=== PATIENT | male | born 1960 | race Caucasian/White ===

== ENCOUNTER 2016-07-01 02:12 | Emergency (ER) | payer MEDICAID ==
[~2016-07-01 02:12] MED LIST: ACETAMINOPHEN325 M2 PO; ASPIRIN325 M3 PO; ASPIRIN325 MG PO; ASPIRIN81 M1 PO; CATAPRES0.1 MG; CELEXA PO; CLEOCIN HCL300 MG PO; COZAAR100 MG; COZAAR25 MG; COZAAR50 MG PO; CYCLOBENZAPRINE10 M1 PO; CYMBALTA60 M1 PO; CYMBALTA60 MG; CYMBALTA60 MG PO; DARVOCET-N 1001 TAB; DARVOCET-N 1001 TAB PO; DILAUDID2 MG PO; FLEXERIL10 MG PO; FLEXERIL5 MG PO; FLUTICASONE PRO16 G1; HYDROCHLOROTHIA25 MG PO; HYDROCODON-ACE1 EA15 PO; HYDROCODON-ACE1 EA17 PO; HYDROCODON-ACE1 EAC5 PO; HYDROCODON-ACE1 EAC7 PO; K-DUR20 MEQ PO; KEFLEX500 MG PO; LASIX20 M1 PO; LASIX40 M1 PO; LASIX40 MG PO; LISINOPRIL20 M1 PO; LISINOPRIL20 MG PO; LOPRESSOR100 MG; LORTAB 7.5/5001 TAB PO; MIRALAX17 G1 PO; MOBIC15 M2 PO; MYCOSTATIN30 GM TP; NEURONTIN100 MG; NORCO 5-325 TA1 EACH PO; NORCO 5/325 TAB1 TAB PO; NORCO 5/3251 TAB PO; NORCO 7.5/325 T1 TAB PO; NORVASC10 MG; NORVASC10 MG PO; NORVASC5 M1 PO; NORVASC5 M2 PO; NORVASC5 MG PO; OXYCODONE/APAP PO; OXYCONTIN10 M1 PO; PERCOCET 5-3251 EACH PO; PERCOCET 5/3251 TAB PO; POLYETHYLENE G500 G1 MC; PREDNISONE5 MG PO; ROXICODONE5 M2 PO; SEPTRA DS TABLE1 TAB PO; SOMA350 MG; SOMA350 MG PO; SPIRONOLACTONE25 M2 PO; SULFAMYLON453.6 GM TP; TOPROL XL100 MG; TOPROL XL100 MG PO; TRAZODONE HCL50 M1 PO; TRIAMCINOLONE A15 G TP; TRIAMCINOLONE A15 G3 TP; ULTRAM50 M1 PO; ULTRAM50 MG PO; ZOLOFT100 M1 PO; ZYRTEC10 MG PO; ZYRTEC1010 PO; [UNRECOGNIZED DRUG - REMARK]
[2016-09-05] MEDS ORDERED: HYDROCODON-ACE1 EA16 PO (10:24)
[2016-10-19] MEDS ORDERED: CYCLOBENZAPRINE10 M1 PO (00:31)
[2016-10-21] MEDS ORDERED: BUTALB-ACETAMI1 EAC1 PO (21:52)
== END 2016-07-01 03:50 ==
LOC: EDMED 02:12
DX: M25.562 Pain in left knee (principal); G89.29 Other chronic pain; I10 Essential (primary) hypertension; Z79.899 Other long term (current) drug therapy
CPT/HCPCS: J2270

== ENCOUNTER 2016-07-04 06:39 | Emergency (ER) | payer MEDICAID ==
[2016-09-05] MEDS ORDERED: HYDROCODON-ACE1 EA16 PO (10:24)
[2016-10-19] MEDS ORDERED: CYCLOBENZAPRINE10 M1 PO (00:31)
[2016-10-21] MEDS ORDERED: BUTALB-ACETAMI1 EAC1 PO (21:52)
== END 2016-07-04 07:15 ==
LOC: EDMED 06:39
DX: M25.562 Pain in left knee (principal); I10 Essential (primary) hypertension; G89.29 Other chronic pain; Z96.653 Presence of artificial knee joint, bilateral

== ENCOUNTER 2016-08-06 03:44 | Inpatient (IN) | payer MEDICAID ==
[2016-08-06] MEDS ORDERED: LISINOPRIL-HCT1 EAC1 PO (03:57)
[2016-08-06] MEDS ORDERED: LISINOPRIL-HCT1 EAC2 PO (04:42)
[2016-08-06 05:20] LABS: BASO % 0.7 % (0-2); BASO ABSOLUTE COUNT 0.1 tho/cmm (0.0-0.2); EOS % 4.9 % (0-7); EOSINOPHIL ABSOLUTE COUNT 0.3 tho/cmm (0.0-0.7); HCT-HEMATOCRIT 43.2 % (36.0-53.5); HGB-HEMOGLOBIN 13.8 gm/dl (13.5-17.0); IMMATURE GRANULOCYTES ABSOLUTE 0.03 tho/cmm (0-0.03); IMMATURE GRANULOCYTES PERCENT 0.4 % (0-0.3); LYMPH % 34.9 % (20-45); LYMPH ABSOLUTE COUNT 2.4 tho/cmm (0.8-4.5); MCH (MEAN CORPUSCULAR HGB) 26.8 pg (28.0-32.0); MCHC MEAN CORPUSCULAR HGB CONC 31.9 % (32.0-36.0); MCV (MEAN CELL VOLUME) 83.9 fl (82.0-96.0); MEAN PLATELET VOLUME 10.1 cmc (9.4-12.4); MONO % 13.6 % (0-12); NEUTROPHIL ABSOLUTE COUNT 3.2 tho/cmm (1.6-8.0); NEUTROPHIL-AUTOMATED 3.2 tho/cmm (1.6-8.0); NEUTROPHILS % 45.5 % (40-80); PLATELET COUNT 258 tho/cmm (150-450); RED BLOOD COUNT 5.15 mil/cmm (4.40-5.70); RED CELL DISTRIBUTION WIDTH 14.7 % (12.4-16.4)
[2016-08-06 07:51] LABS: ANION GAP 12 mmol/L (0-20); BLOOD UREA NITROGEN 20 mg/dl (6-24); CALCIUM 8.6 mg/dl (8.5-10.5); CARBON DIOXIDE-VENOUS 29 mmol/L (22-32); CHLORIDE 102 mmol/l (96-110); CREATININE 1.35 mg/dl (0.60-1.30); GLUCOSE 134 mg/dL (70-110); SODIUM 139 mmol/L (135-145); eGFR VALUE FOR BLACK 67 mL/Min
[2016-08-06 07:52] LABS: POTASSIUM 4.1 mmol/L (3.7-5.1)
[2016-08-07 05:19] LABS: BASO % 0.1 % (0-2); HCT-HEMATOCRIT 44.3 % (36.0-53.5); HGB-HEMOGLOBIN 13.7 gm/dl (13.5-17.0); LYMPH % 10.4 % (20-45); LYMPH ABSOLUTE COUNT 1.3 tho/cmm (0.8-4.5); MCH (MEAN CORPUSCULAR HGB) 26.2 pg (28.0-32.0); MCHC MEAN CORPUSCULAR HGB CONC 30.9 % (32.0-36.0); MCV (MEAN CELL VOLUME) 84.9 fl (82.0-96.0); MEAN PLATELET VOLUME 10.4 cmc (9.4-12.4); MONO % 4.5 % (0-12); MONOCYTE ABSOLUTE COUNT 0.6 tho/cmm (0.0-1.2); NEUTROPHIL ABSOLUTE COUNT 10.6 tho/cmm (1.6-8.0); NEUTROPHIL-AUTOMATED 10.6 tho/cmm (1.6-8.0); PLATELET COUNT 279 tho/cmm (150-450); RED BLOOD COUNT 5.22 mil/cmm (4.40-5.70); RED CELL DISTRIBUTION WIDTH 14.6 % (12.4-16.4); WHITE BLOOD COUNT 12.5 tho/cmm (4.0-10.0)
[2016-08-08 05:12] LABS: BASO % 0.1 % (0-2); EOS % 0.2 % (0-7); HCT-HEMATOCRIT 44.4 % (36.0-53.5); HGB-HEMOGLOBIN 14.1 gm/dl (13.5-17.0); IMMATURE GRANULOCYTES ABSOLUTE 0.06 tho/cmm (0-0.03); IMMATURE GRANULOCYTES PERCENT 0.5 % (0-0.3); LYMPH % 20.1 % (20-45); LYMPH ABSOLUTE COUNT 2.7 tho/cmm (0.8-4.5); MCH (MEAN CORPUSCULAR HGB) 26.8 pg (28.0-32.0); MCHC MEAN CORPUSCULAR HGB CONC 31.8 % (32.0-36.0); MCV (MEAN CELL VOLUME) 84.3 fl (82.0-96.0); MEAN PLATELET VOLUME 10.4 cmc (9.4-12.4); MONO % 10.3 % (0-12); MONOCYTE ABSOLUTE COUNT 1.4 tho/cmm (0.0-1.2); NEUTROPHIL ABSOLUTE COUNT 9.2 tho/cmm (1.6-8.0); NEUTROPHIL-AUTOMATED 9.2 tho/cmm (1.6-8.0); NEUTROPHILS % 68.8 % (40-80); PLATELET COUNT 271 tho/cmm (150-450); RED BLOOD COUNT 5.27 mil/cmm (4.40-5.70); RED CELL DISTRIBUTION WIDTH 14.8 % (12.4-16.4); WHITE BLOOD COUNT 13.3 tho/cmm (4.0-10.0)
[2016-08-08 05:40] LABS: ANION GAP 12 mmol/L (0-20); BLOOD UREA NITROGEN 14 mg/dl (6-24); CALCIUM 8.5 mg/dl (8.5-10.5); CARBON DIOXIDE-VENOUS 35 mmol/L (22-32); CHLORIDE 95 mmol/l (96-110); CREATININE 1.27 mg/dl (0.60-1.30); GLUCOSE 126 mg/dL (70-110); POTASSIUM 3.7 mmol/L (3.7-5.1); SODIUM 138 mmol/L (135-145); eGFR VALUE FOR BLACK 72 mL/Min
[2016-08-08] MEDS ORDERED: CLEOCIN HCL300 M1 PO (15:29)
[2016-08-08] MEDS ORDERED: OXYCODONE HCL5 M1 PO (15:31)
[2016-09-05] MEDS ORDERED: HYDROCODON-ACE1 EA16 PO (10:24)
[2016-10-19] MEDS ORDERED: CYCLOBENZAPRINE10 M1 PO (00:31)
[2016-10-21] MEDS ORDERED: BUTALB-ACETAMI1 EAC1 PO (21:52)
== END 2016-08-08 16:25 | disposition home health service (06) | DRG 565 ==
LOC: EDMED 03:44 → EMR2 06:21 → SHSA 07:19 → ORE 11:40 → SHSA 12:45 → 5EB 16:05
PROVIDERS: Anesthesiology; Emergency Medicine; Family Medicine; ADMIT Family Medicine
PROC: 0J9Q0ZX Drainage of Right Foot Subcutaneous Tissue and Fascia, Open Approach, Diagnostic (ICD-10-PCS; principal; 2016-08-06)
PROC: 0JCQ0ZZ Extirpation of Matter from Right Foot Subcutaneous Tissue and Fascia, Open Approach (ICD-10-PCS; principal; 2016-08-06)
PROC: 3E0F7GC Introduction of Other Therapeutic Substance into Respiratory Tract, Via Natural or Artificial Opening (ICD-10-PCS; principal; 2016-08-06)
DX: M79.5 Residual foreign body in soft tissue (principal); L02.611 Cutaneous abscess of right foot; Z68.42 Body mass index [BMI] 45.0-49.9, adult; I10 Essential (primary) hypertension; E66.9 Obesity, unspecified; F32.9 Major depressive disorder, single episode, unspecified; M19.90 Unspecified osteoarthritis, unspecified site; M54.9 Dorsalgia, unspecified; Z87.2 Personal history of diseases of the skin and subcutaneous tissue; N36.8 Other specified disorders of urethra; B95.8 Unspecified staphylococcus as the cause of diseases classified elsewhere
CPT/HCPCS: G8987-GO-CH; G8988-GO-CH; G8989-GO-CH; J0690; J2270; J2405; J2543; J3370; J7030; J7999

== ENCOUNTER 2016-08-18 02:28 | Emergency (ER) | payer MEDICAID ==
[~2016-08-18 02:28] MED LIST changes: +CLEOCIN HCL300 M1 PO; +LISINOPRIL-HCT1 EAC1 PO; +LISINOPRIL-HCT1 EAC2 PO; +OXYCODONE HCL5 M1 PO
[2016-09-05] MEDS ORDERED: HYDROCODON-ACE1 EA16 PO (10:24)
[2016-10-19] MEDS ORDERED: CYCLOBENZAPRINE10 M1 PO (00:31)
[2016-10-21] MEDS ORDERED: BUTALB-ACETAMI1 EAC1 PO (21:52)
== END 2016-08-18 03:25 ==
LOC: EDMED 02:28
DX: G89.18 Other acute postprocedural pain (principal); M79.671 Pain in right foot; I10 Essential (primary) hypertension; Z79.82 Long term (current) use of aspirin; Z79.899 Other long term (current) drug therapy; Z90.89 Acquired absence of other organs; Z96.652 Presence of left artificial knee joint

== ENCOUNTER 2016-08-24 09:35 | Emergency (ER) | payer MEDICAID ==
[2016-09-05] MEDS ORDERED: HYDROCODON-ACE1 EA16 PO (10:24)
[2016-10-19] MEDS ORDERED: CYCLOBENZAPRINE10 M1 PO (00:31)
[2016-10-21] MEDS ORDERED: BUTALB-ACETAMI1 EAC1 PO (21:52)
== END 2016-08-24 10:59 ==
LOC: EDMED 09:35
DX: Z48.01 Encounter for change or removal of surgical wound dressing (principal); Z76.0 Encounter for issue of repeat prescription; I10 Essential (primary) hypertension; Z88.6 Allergy status to analgesic agent; Z88.8 Allergy status to other drugs, medicaments and biological substances; Z79.899 Other long term (current) drug therapy